=== PATIENT | female | born 1975 | race American Indian/Alaskan Native ===

== ENCOUNTER 2022-05-29 20:02 | Emergency (ER) | payer OTHER ==
[2022-05-29 20:49] VITALS: BP 123/75
[2022-05-30] MEDS ORDERED: CYCLOBENZAPRINE 10 MG TAB PO ONE (07:58)
[2022-05-30] MEDS ORDERED: IBUPROFEN 800 MG TAB PO ONE (07:58)
--- NOTE | 2022-05-30 08:20 | Emergency Department Report ---
ED Fall HPI - General Chief Complaint: Fall Stated Complaint: LOWER BACK PAIN S/P FALL Time Seen by Provider: 05/30/22 07:43 Source: patient, EMS Mode of arrival: Stretcher - History of Present Illness Initial Comments: 46 yo comes [place]. co r shoulder pain. she missed her plane to [place]. She states the tram that she was on fell to its side when she fell no loc MD Complaint: fall -: Sudden, hour(s) Fall From: other Fall Witnessed: yes, by family Place Fall Occurred: other Loss of Consciousness: none Prolonged Down Time?: no Symptoms Prior to Fall: none Location: other Location - Extremities: Right: Shoulder Severity: mild Associated Symptoms: denies - Related Data Allergies Allergy/AdvReac Type Severity Reaction Status Date / Time No Known Allergies Allergy Unverified 05/29/22 20:49 ED Review of Systems ROS: Stated complaint: LOWER BACK PAIN S/P FALL Other details as noted in HPI Comment: All other systems reviewed and negative ED Past Medical Hx - Past Medical History Previous Medical History?: No - Surgical History Past Surgical History?: No - Family History Family history: no significant - Social History Smoking Status: Never Smoker Substance Use Type: Alcohol ED Physical Exam - General Limitations: No Limitations General appearance: alert, in no apparent distress - Head Head exam: Present: atraumatic, normocephalic - Eye Eye exam: Present: normal appearance - ENT ENT exam: Present: mucous membranes moist - Neck Neck exam: Present: normal inspection - Respiratory Respiratory exam: Present: normal lung sounds bilaterally. Absent: respiratory distress - Cardiovascular Cardiovascular Exam: Present: regular rate, normal rhythm. Absent: systolic murmur, diastolic murmur, rubs, gallop - GI/Abdominal GI/Abdominal exam: Present: soft, normal bowel sounds - Extremities Exam Extremities exam: Present: normal inspection - Back Exam Back exam: Present: normal inspection - Neurological Exam Neurological exam: Present: alert, oriented X3 - Psychiatric Psychiatric exam: Present: normal affect, normal mood - Skin Skin exam: Present: warm, dry, intact, normal color. Absent: rash ED Course Vital Signs 05/29/22 20:47 Temperature 98.8 F Pulse Rate 79 Respiratory 16 Rate Blood Pressure 123/75 [Right] O2 Sat by Pulse 99 Oximetry ED Medical Decision Making - Radiology Data Radiology results: report reviewed, image reviewed nap - Medical Decision Making Vital Signs 05/29/22 20:47 Temperature 98.8 F Pulse Rate 79 Respiratory 16 Rate Blood Pressure 123/75 [Right] O2 Sat by Pulse 99 Oximetry neurovasc intact xray nap pt requesting to leave ER to get her kids off to school. dc home with dc plan of care including diet, meds, activity and follow up. she verbalizes understanding of plan of care. - Differential Diagnosis ro fx/ac seperation Critical care attestation.: If time is entered above; I have spent that time in minutes in the direct care of this critically ill patient, excluding procedure time. ED Disposition Clinical Impression: Fall, Contusion Disposition: HOME / SELF CARE / HOMELESS Is pt being admited?: No Does the pt Need Aspirin: No Condition: Undetermined Instructions: Preventing Injuries During Additional Instructions: alternate warm and cool compresses to shoulder xray normal over the counter motrin or tylenol for pain follow up with pcp should pain persist Referrals: HUDSON LACY MD [Staff Physician] - 3-5 Days Time of Disposition: 09:14
--- NOTE | 2022-05-30 08:46 | XRay Report ---
RIGHT SHOULDER 3 VIEWS INDICATION: shoulder pain. COMPARISON: None. IMPRESSION: No acute osseous or soft tissue abnormality. No significant DJD. Signer Name: Darren Chawla Jr, MD Signed: 05/30/2022 8:42 AM Workstation Name: [id number]
== END 2022-05-30 09:50 | disposition home or self-care (01) ==
LOC: ED 20:02
DX: S30.0XXA Contusion of lower back and pelvis, initial encounter (principal); M54.50 Low back pain, unspecified; W19.XXXA Unspecified fall, initial encounter; Y93.89 Activity, other specified; Y92.89 Other specified places as the place of occurrence of the external cause; Y99.8 Other external cause status; F10.20 Alcohol dependence, uncomplicated
CPT/HCPCS: 99283